=== PATIENT | female | born 1940 | race Hispanic/Latino ===

== ENCOUNTER 2021-10-21 19:03 | Emergency (ER) | payer MEDICARE ==
--- NOTE | 2021-10-22 00:10 | Emergency Department Report ---
ED Animal Bite HPI - General Chief Complaint: Animal Bite Stated Complaint: DOG BITE LEFT ARM Time Seen by Provider: 10/22/21 00:07 Source: patient, family Mode of arrival: Ambulatory Limitations: No Limitations - History of Present Illness MD Complaint: animal bite -: Sudden Left: Forearm Animal: dog Animal Control Notified: No Description: household pet Mechanism: bite Pain Description: dull, constant Context: unprovoked Associated Symptoms: bleeding. denies: rash, loss of consciousness - Related Data Patient Tetanus UTD: No Previous Rx's Medication Instructions Recorded Last Taken Type Amoxicillin/K Clav Tab [Augmentin 1 tab PO Q12HR #20 tab 10/22/21 Unknown Rx 875 mg] traMADoL [Ultram] 50 mg PO Q6HR PRN #14 tablet 10/22/21 Unknown Rx Allergies Allergy/AdvReac Type Severity Reaction Status Date / Time codeine AdvReac Intermediate Unknown Verified 10/22/21 00:20 ED Review of Systems ROS: Stated complaint: DOG BITE LEFT ARM Other details as noted in HPI Comment: All other systems reviewed and negative ED Past Medical Hx - Medications Home Medications: Home Medications Medication Instructions Recorded Confirmed Last Taken Type Amoxicillin/K Clav Tab [Augmentin 1 tab PO Q12HR #20 tab 10/22/21 Unknown Rx 875 mg] traMADoL [Ultram] 50 mg PO Q6HR PRN #14 tablet 10/22/21 Unknown Rx ED Physical Exam - General Limitations: No Limitations General appearance: alert, in no apparent distress - Head Head exam: Present: atraumatic, normocephalic - Eye Eye exam: Present: normal appearance, PERRL, EOMI Pupils: Present: normal accommodation - ENT ENT exam: Present: normal exam, normal orophraynx, mucous membranes moist, TM's normal bilaterally - Neck Neck exam: Present: normal inspection, full ROM - Respiratory Respiratory exam: Present: normal lung sounds bilaterally. Absent: respiratory distress, wheezes, rales, rhonchi, chest wall tenderness, accessory muscle use - Cardiovascular Cardiovascular Exam: Present: regular rate, normal rhythm. Absent: systolic murmur, diastolic murmur, rubs, gallop - GI/Abdominal GI/Abdominal exam: Present: soft, normal bowel sounds - Extremities Exam Extremities exam: Present: normal inspection, normal capillary refill - Back Exam Back exam: Present: normal inspection. Absent: CVA tenderness (R), CVA tenderness (L) - Neurological Exam Neurological exam: Present: alert, oriented X3, CN II-XII intact, normal gait - Psychiatric Psychiatric exam: Present: normal affect, normal mood - Skin Skin exam: Present: warm, dry, intact, normal color. Absent: rash ED Course Vital Signs 10/21/21 19:46 Temperature 98.0 F Pulse Rate 82 Respiratory 18 Rate Blood Pressure 150/56 O2 Sat by Pulse 96 Oximetry - Procedure Description Procedures done: \Laceration to left forearm 4.5 cm in length with some controlled bleeding. Due to the size of the wound to this is a sutures were placed to bring the wound closer together but not to achieve closure. This was obtained by dressing room wound in sterile fashion and irrigated with normal saline and using a Betadine cleansing. 1% lidocaine was placed into the wound and 2 sutures 4-0 Vicryl placed in simple erupted fashion. Tolerated the procedure tolerated well no complications. She was discharged home antibiotics and pain medication in the form of Ultram stating she has taken Ultram in the past with no complications Critical care attestation.: If time is entered above; I have spent that time in minutes in the direct care of this critically ill patient, excluding procedure time. ED Disposition Clinical Impression: Dog bite, Tetanus toxoid inoculation Disposition: HOME / SELF CARE / HOMELESS Is pt being admited?: No Does the pt Need Aspirin: No Condition: Stable Instructions: VIS, Tetanus, Diphtheria (Td); Tetanus, Diphtheria, Pertussis (Tdap) - CDC, Animal Bite, Adult Prescriptions: Amoxicillin/K Clav Tab [Augmentin 875 mg] 1 tab PO Q12HR #20 tab Referrals: [facility] [Provider Group] - 3-5 Days
[2021-10-22] MEDS ORDERED: LIDOCAINE (2%) 20 MG/1 ML VIAL 20 ML MDV INFILTRATI ONE (01:07)
[2021-10-22] MEDS ORDERED: TETANUS,DIPH,PERTUSS(ACELL) VACCINE 0.5 ML SYRINGE IM ONE (01:07)
[2021-10-22 01:48] VITALS: BP 146/69
== END 2021-10-22 01:48 | disposition home or self-care (01) ==
LOC: ED 19:03
DX: S50.872A Other superficial bite of left forearm, initial encounter (principal); Z88.6 Allergy status to analgesic agent; W54.0XXA Bitten by dog, initial encounter; Y93.89 Activity, other specified; Y92.89 Other specified places as the place of occurrence of the external cause; Y99.8 Other external cause status
CPT/HCPCS: 12002; 90471; 90715; 99282; J3490